=== PATIENT | male | born 2000 | race Caucasian/White ===

== ENCOUNTER 2025-03-23 09:00 | Outpatient (CLI) | payer OTHER, SELFPAY | END 2025-03-23 09:01 | disposition home or self-care (01) | LOC: NFLDREF 03-29 03:16 | PROVIDERS: PCP Family Medicine; Referring Provider Family Medicine; Visit Provider Family Medicine | DX: N52.9 Male erectile dysfunction, unspecified (principal); R53.83 Other fatigue | CPT/HCPCS: 84270; 84402; 84403 ==